=== PATIENT | male | born 1960 | race Caucasian/White ===

== ENCOUNTER 2019-12-31 00:56 | Outpatient (CLI) | payer MEDICARE, MEDICAID, SELFPAY ==
[2019-12-31 18:13] LABS: SARS-CoV-2 RNA PCR Negative
== END 2019-12-31 00:57 | disposition home or self-care (01) ==
LOC: ANHCOVIDDT 00:57
PROVIDERS: PCP Internal Medicine; Visit Provider Surgery
DX: Z01.812 Encounter for preprocedural laboratory examination (principal); Z20.828 Contact with and (suspected) exposure to other viral communicable diseases
CPT/HCPCS: 87635; C9803; U0003

== ENCOUNTER 2020-01-03 01:18 | Day surgery (SDC) | payer MEDICARE, MEDICAID, SELFPAY ==
[2019-12-26 13:51] VITALS: BMI 25.7
[2020-01-03 08:22] VITALS: BP 108/73; PULSE 71; RESP 16; TEMP 36.6; O2SAT 100; BMI 27.0
[2020-01-03] MEDS: LACTATED RINGERS 1,000 ML 150 ML IV CONT (08:35)
--- NOTE | 2020-01-03 08:44 | WPDANESEPPF ---
Anes - Initial Pre Proc Eval Procedure: Operation Date: 01/03/20 09:00 Proposed Procedures p Screening Colonoscopy - Gordo Blackman DO Date/Time: 01/03/20 08:44 Surgeon: Gordo Blackman DO Pre Op Diagnosis: Hx Of Colon Ca Patient Data Age: 59 Gender: M Height: 1.63 m Weight: 71.4 kg Last Vital Signs Temp 36.6 C 01/03/20 08:22 Pulse 71 01/03/20 08:22 Resp 16 01/03/20 08:22 BP 108/73 01/03/20 08:22 Pulse Ox 100 01/03/20 08:22 Allergies Allergy/AdvReac Type Severity Reaction Status Date / Time No Known Allergies Allergy Verified 01/03/20 08:21 Home Medications Medication Instructions Recorded Confirmed Type escitalopram oxalate 10 mg PO DAILY 12/26/19 12/26/19 History lorazepam 1 mg PO HS 12/26/19 12/26/19 History quetiapine 50 mg PO HS 12/26/19 12/26/19 History Patient hx anesthesia problems: none Family hx anesthesia problems: none PMFSH Past Medical History Medical History (Updated 01/03/20 @ 08:46 by Eric Lucero MD) Anxiety CAD (coronary artery disease) Cancer COLON CANCER 2011- Depression Hx of myocardial infarction Overweight (BMI 25.0-29.9) Social History Social History (System 03/03/19 @ 08:05 by Jaki Cai) Years smoked: 40 Smoking status: Current every day smoker Tobacco type: cigarettes Second hand tobacco smoke exposure: Yes Alcohol intake: former Substance use: current Substance use type: marijuana Other substance usage details: OCC. Last use: 12/26/2019 Living arrangements: with family Spiritual care concerns: No Anes - Eval Final PreProcedure Day of Procedure 01/03/20 08:44 Informed Consent: The patient's anesthetic plan and its attendant risks and benefits were discussed with the patient/family/POA. Questions were solicited and answers provided to the satisfaction of the patient/family/POA.
--- NOTE | 2020-01-03 08:56 | PM.IMHP ---
H&P: HPI History of Present Illness Date/Time: 01/03/20 08:56 Chief complaint: Hx Of Colon Ca Narrative: Dav Michel is a 59 year old male with hx of right colon cancer in 2011. Underwent right hemicolectomy. Last colonoscopy was 4 years ago and was normal. Denies any change in bowels since then. Review of Systems Review of Systems: All systems reviewed & are unremarkable except as noted in HPI and below Constitutional: Constitutional: Denies chills, Denies fever(s), Denies headache(s) and Denies weight loss Eyes: Eyes: Denies change in vision ENT: Denies dizziness, Denies headache(s), Denies neck mass and Denies throat swelling Cardiovascular: Cardiovascular: Denies chest pain, Denies lightheadedness and Denies dyspnea Respiratory: Respiratory: Denies cough, Denies dyspnea and Denies wheezing Gastrointestinal: Gastrointestinal: Denies abdominal pain, Denies change in bowel habits, Denies nausea and Denies vomiting Genitourinary: Genitourinary: Denies hematuria and Denies dysuria Musculoskeletal: Musculoskeletal: Reports as per HPI Integumentary/Breasts: Skin/Breast: Reports as per HPI Neurologic: Denies dizziness and Denies headache(s) Allergic/Immunologic: Allergic/Immunologic: Denies throat swelling and Denies wheezing PMF Past Medical History Medical History (Updated 01/03/20 @ 08:57 by Gordo Blackman DO) Anxiety CAD (coronary artery disease) Cancer COLON CANCER 2012- [place] Depression Hx of myocardial infarction Overweight (BMI 25.0-29.9) Surgical History Surgical History (Updated 01/03/20 @ 08:57 by Gordo Blackman DO) Hx of right hemicolectomy Social History Social History Years smoked: 40 Smoking status: Current every day smoker Tobacco type: cigarettes Second hand tobacco smoke exposure: Yes Alcohol intake: former Substance use: current Substance use type: marijuana Other substance usage details: OCC. Last use: 12/26/2019 Living arrangements: with family Spiritual care concerns: No Meds Home Medications and Allergies Home Medications Medication Instructions Recorded Confirmed Type escitalopram oxalate 10 mg PO DAILY 12/26/19 12/26/19 History lorazepam 1 mg PO HS 12/26/19 12/26/19 History quetiapine 50 mg PO HS 12/26/19 12/26/19 History Allergies Allergy/AdvReac Type Severity Reaction Status Date / Time No Known Allergies Allergy Verified 01/03/20 08:21 Vital Signs Vital Signs - 24 hr 01/03/20 08:22 Temperature 36.6 C Pulse Rate 71 Respiratory Rate 16 Blood Pressure 108/73 Pulse Oximetry 100 Exam Const: General: no acute distress and alert Orientation/consciousness: patient oriented x3 HENMT: Head: normocephalic and atraumatic Ears: hearing grossly normal bilaterally General nose exam: Normal nares present Mouth: Yes Normal oral and palatal mucosa present Eyes: Periorbital: periorbital findings normal Sclera: sclerae normal EOM: EOMs intact bilaterally Neck: Neck: normal visual inspection, no lymphadenopathy and trachea midline Chest: Chest palpation & inspection: normal inspection of the chest Resp: Effort & Inspection: normal respiratory effort Auscultation: clear to auscultation bilaterally Cardio: Jugular venous distension: no JVD Rate: regular rate Rhythm: regular rhythm Heart sounds: S1 normal heart sound present and S2 normal heart sound present Peripheral pulses: Peripheral pulses 2+ throughout GI: Inspection: normal to inspection GI Palp: Yes Soft to palpation, No Tenderness to palpation present (GI), No Guarding due to palpation present (GI) and No Rebound tenderness present Percussion: Yes normal to percussion Auscultation: normal bowel sounds : General: Yes no CVA tenderness Back/Spine/Pelvis: Back: no CVA tenderness Neuro: General: patient oriented x3, no focal motor deficits and CN's II-XI intact bilaterally Cognition (Ne
[2020-01-03 09:15] VITALS: BP 87/56; PULSE 66; RESP 16; O2SAT 99
[2020-01-03 09:25] VITALS: BP 85/54; PULSE 61; RESP 16; O2SAT 100
[2020-01-03 09:35] VITALS: BP 98/68; PULSE 57; RESP 16; O2SAT 100
== END 2020-01-03 09:47 | disposition home or self-care (01) ==
PROVIDERS: PCP Internal Medicine; Visit Provider Surgery
PROC: 0DJD8ZZ Inspection of Lower Intestinal Tract, Via Natural or Artificial Opening Endoscopic (ICD-10-PCS; CPT 45378; principal; 2020-01-03 09:00)
DX: Z12.11 Encounter for screening for malignant neoplasm of colon (principal); Z85.038 Personal history of other malignant neoplasm of large intestine; Z98.0 Intestinal bypass and anastomosis status; I25.10 Atherosclerotic heart disease of native coronary artery without angina pectoris; I25.2 Old myocardial infarction; F41.9 Anxiety disorder, unspecified; F32.9 Major depressive disorder, single episode, unspecified; E66.3 Overweight; Z68.27 Body mass index [BMI] 27.0-27.9, adult; F17.210 Nicotine dependence, cigarettes, uncomplicated; Z79.899 Other long term (current) drug therapy
CPT/HCPCS: G0105; J2704; J7120

== ENCOUNTER 2020-11-02 10:07 | Outpatient (CLI) | payer MEDICARE, MEDICAID, SELFPAY ==
--- NOTE | ~2020-11-02 | CT_ITS ---
EXAMINATION: CT lung screening EXAM DATE: 11/02/2020 10:17 INDICATION: Lung cancer screening . Personal history of tobacco dependence. TECHNIQUE: Spiral low dose CT of the chest without contrast. Axial, coronal and sagittal images were reviewed. The dose-length product (DLP) for this examination was 76.87 mGy-cm. The exposure was ta ilored according to patient size (auto mA exposure control), and iterative reconstruction (ASIR) was used as additional dose reduction technique. There is no prior study for comparison. FINDINGS: The lungs are clear. Tracheobronchial tree is patent. There is no mediastinal, hilar o r axillary lymphadenopathy. There are no pleural or pericardial effusions. There is no pneumothor ax. Heart normal in size. There is minimal coronary arterial calcification, arterial sclerosis. U pper abdomen is unremarkable. There is thoracic spondylosis without osteoblastic or osteolytic lesi ons identified. IMPRESSION: Lung-RADS category 1, negative (<1%chance of malignancy); recommend continued LDCT screen ing in 1 year. Reviewed, dictated and finalized at location B. IMPRESSION: Lung-RADS category 1, negative (<1%chance of malignancy); recommend continued LDCT screening in 1 year.
== END 2020-11-02 10:08 | disposition home or self-care (01) ==
LOC: CHSIMG 10:09
PROVIDERS: PCP Internal Medicine; Visit Provider Internal Medicine
DX: Z12.2 Encounter for screening for malignant neoplasm of respiratory organs (principal); Z87.891 Personal history of nicotine dependence
CPT/HCPCS: 71271

== ENCOUNTER 2021-11-12 10:23 | Outpatient (CLI) | payer MEDICARE, MEDICAID, SELFPAY ==
[2021-11-12 10:45] LABS: Basophils Absolute Auto 0.04 K/mm3 (0.00-0.10); Basophils Percent Auto 0.8 % (0.0-1.0); Hematocrit 44.2 % (40.0-54.0); Hemoglobin 14.5 g/dL (14.0-18.0); Immature Granulocyte Absolute 0.01 K/mm3 (0.00-0.00); Immature Granulocyte Percent A 0.2 % (0.0-0.0); Lymphocytes Absolute Auto 1.57 K/mm3 (1.10-4.50); Lymphocytes Percent Auto 31.2 % (18.0-42.0); Mean Corpuscular HGB Conc 32.8 g/dL (32.0-36.0); Mean Corpuscular Hemoglobin 32.2 pg (27.0-31.0); Mean Corpuscular Volume 98.2 fL (78.0-102.0); Mean Platelet Volume 9.7 fl (8.7-11.0); Neutrophils Absolute Auto 3.1 K/mm3 (1.7-7.2); Neutrophils Percent Auto 61.8 % (50.0-70.0); Platelet Count Result 273 K/mm3 (150-420); Red Cell Distribution Width 13.2 % (11.6-14.4)
[2021-11-12 10:48] LABS: Add Urine Microscopic? NO; Appearance Urine Clear (Clear); Bilirubin Urine Negative (Negative); Blood Urine Negative (Negative); Color Urine Light Yellow (Yellow); Glucose Urine UA Negative (Negative); Ketones Urine Negative (Negative); Leukocyte Esterase Ur Negative (Negative); Nitrate Urine Negative (Negative); Protein Urine Negative (Negative); Specific Grav Ur <= 1.005 (1.010-1.020); Urobilinogen Urine 0.2 mg/dL (0.2-1.0); pH Urine 5.5 (5.0-8.0)
[2021-11-12 11:14] LABS: Alanine Aminotransferase 29 U/L (16-63); Alkaline Phosphatase 103 U/L (46-116); Anion Gap 6 mmol/L (8-16); Bilirubin,Total 0.4 mg/dL (0.00-1.00); Blood Urea Nitrogen 12 mg/dL (7-18); Calcium 8.8 mg/dL (8.5-10.1); Carbon Dioxide 29 mmol/L (21-32); Chloride 106 mmol/L (98-108); Cholesterol 200 mg/dL (0-200); Estimated Glomerular Filt Rate > 60; Glucose 85 mg/dL (70-99); HDL Direct 69 mg/dL (40-60); LDL Cholesterol Calculated 111 mg/dL (<130); Osmolality Calculated 290 mOsm/kg (285-295); Potassium 4.4 mmol/L (3.5-5.1); Prostate Specific Antigen 3.2 ng/mL (< OR = 4.0); Sodium 141 mmol/L (136-145); Thyroid Stimulating Hormone 0.95 uIU/mL (0.36-3.74); Total Protein 7.4 g/dL (6.4-8.2); Triglycerides 100 mg/dL (0-150)
[2021-11-12 11:31] LABS: Aspartate Amino Transferase 14 U/L (15-37)
[2021-11-15 04:08] LABS: Carcinoembryonic Antigen 1.7 ng/mL (0.0-2.4)
== END 2021-11-12 10:24 | disposition home or self-care (01) ==
LOC: CHSLAB 10:25
PROVIDERS: PCP Internal Medicine; Visit Provider Internal Medicine
DX: C18.9 Malignant neoplasm of colon, unspecified (principal); I10 Essential (primary) hypertension; Z12.5 Encounter for screening for malignant neoplasm of prostate; Z00.00 Encounter for general adult medical examination without abnormal findings
CPT/HCPCS: 36415; 80053; 80061; 81003; 82378; 84153; 84443; 85025; G0103

== ENCOUNTER 2022-10-22 14:28 | Outpatient (CLI) | payer MEDICARE, MEDICAID, SELFPAY ==
--- NOTE | ~2022-10-22 | CT_ITS ---
EXAMINATION: CT abdomen pelvis wo con DATE: 10/22/2022 14:48 INDICATION: Right flank pain, history of kidney stones TECHNIQUE: Computed tomography (CT) of the abdomen and pelvis was performed without intravenous contr ast. The dose-length product (DLP) was 194.05 mGy-cm. Automated exposure control and iterative recons truction technique were employed. COMPARISON: 02/28/2012 FINDINGS: There is mild emphysema visualized lung bases. The heart size is normal. Calcified coronary artery atherosclerosis is noted. The liver, spleen, pancreas, gallbladder, and adrenal glands are no rmal. The left kidney is unremarkable. There is an 8 mm lesion of the right mid kidney which is decre ased in size but increase in density when compared to the prior examination, most likely a proteinace ous cyst. No stones are identified in the kidneys or ureters. There are tiny stones in the urinary bl adder measuring 1 to 2 mm. No hydronephrosis or hydroureter. There is calcified atherosclerosis of th e aorta and many of the other arteries. No pathologically enlarged abdominal or pelvic lymph nodes ar e identified. No free intraperitoneal gas or evidence of bowel obstruction. There are changes of righ t hemicolectomy. There is an umbilical hernia containing fat. There is severe lumbar spondylosis. IMPRESSION: 1. Tiny stones of the urinary bladder measuring 1 to 2 mm. Reviewed, dictated and finalized at location []
== END 2022-10-22 14:29 | disposition home or self-care (01) ==
LOC: CHSIMG 14:29
PROVIDERS: PCP Internal Medicine; Visit Provider Internal Medicine
DX: N21.0 Calculus in bladder (principal)
CPT/HCPCS: 74176

== ENCOUNTER 2024-03-22 11:11 | Outpatient (CLI) | payer MEDICARE, MEDICAID, SELFPAY ==
--- NOTE | ~2024-03-22 | CT_ITS ---
EXAMINATION: CT abdomen pelvis w con DATE: 03/22/2024 12:28 INDICATION: Right lower quadrant abdominal pain. Colon cancer. TECHNIQUE: Computed tomography (CT) of the abdomen and pelvis was performed with 100 mL Omnipaque 350 intravenous contrast. Automated exposure control and iterative reconstruction technique were employe d. The dose-length product was 229.06 mGy-cm. COMPARISON: CT abdomen and pelvis 10/22/2022 FINDINGS: The visualized portions of the lung bases demonstrate mild atelectasis. No pleural effusion . The heart size is normal. No pericardial effusion. There is an 11 mm hyperenhancing mass in right h epatic lobe without change in size, likely a hemangioma or focal nodular hyperplasia. The gallbladder , spleen, pancreas, and adrenal glands are normal. There are cysts in the kidneys measuring up to 13 mm on the right. There is a 0.9 cm mass in the bladder. There is a 1.6 cm mass in the bladder. The pr ostate is moderately enlarged. There is a calcification in the posterior bladder wall. There are ribera ges of right hemicolectomy. There are no pathologically enlarged lymph nodes. There is no free intrap eritoneal fluid. There is lumbar levoscoliosis and severe spondylosis. IMPRESSION: 1. Bladder masses, consistent with urothelial carcinoma. Reviewed, dictated and finalized at location A. [employer]
[2024-03-22 11:33] LABS: Basophils Absolute Auto 0.04 K/mm3 (0.00-0.10); Basophils Percent Auto 0.4 % (0.0-1.0); Eosinophils Absolute Auto 0.17 K/mm3 (0.02-0.50); Eosinophils Percent Auto 1.9 % (1.0-6.0); Hematocrit 42.9 % (40.0-54.0); Hemoglobin 14.4 g/dL (14.0-18.0); Immature Granulocyte Absolute 0.03 K/mm3 (0.00-0.00); Immature Granulocyte Percent A 0.3 % (0.0-0.0); Lymphocytes Absolute Auto 1.86 K/mm3 (1.10-4.50); Lymphocytes Percent Auto 20.3 % (18.0-42.0); Mean Corpuscular HGB Conc 33.6 g/dL (32-36); Mean Corpuscular Hemoglobin 31.9 pg (27.0-31.0); Mean Corpuscular Volume 95.1 fL (78.0-102.0); Mean Platelet Volume 9.6 fl (8.7-11.0); Monocytes Absolute Auto 0.51 K/mm3 (0.10-0.90); Monocytes Percent Auto 5.6 % (2.0-11.0); Neutrophils Absolute Auto 6.56 K/mm3 (1.70-7.20); Neutrophils Percent Auto 71.5 % (50.0-70.0); Platelet Count Result 268 K/mm3 (150-420); Red Blood Count 4.51 M/mm3 (4.70-6.10); Red Cell Distribution Width 13.6 % (11.6-14.4); White Blood Count 9.2 K/mm3 (4.8-10.8)
[2024-03-22 11:42] LABS: Anion Gap 4 mmol/L (4-12); Blood Urea Nitrogen 17 mg/dL (7-18); Carbon Dioxide 31 mmol/L (21-32); Chloride 105 mmol/L (98-108); Estimated Glomerular Filt Rate > 60; Glucose 97 mg/dL (70-99); Osmolality Calculated 291 mOsm/kg (285-295); Potassium 4.3 mmol/L (3.5-5.1); Sodium 140 mmol/L (136-145)
== END 2024-03-22 11:12 | disposition home or self-care (01) ==
LOC: CHSIMG 11:15
PROVIDERS: PCP Internal Medicine; Visit Provider Nurse Practitioner Family
DX: C18.2 Malignant neoplasm of ascending colon (principal); R10.31 Right lower quadrant pain; N32.9 Bladder disorder, unspecified
CPT/HCPCS: 36415; 74177; 80048; 85025; Q9967